=== PATIENT | male | born 1975 | race African-American/Black ===

== ENCOUNTER 2023-03-29 23:02 | Emergency (ER) | payer MEDICAID, OTHER ==
[~2023-03-29] VITALS: Ht 182.9 cm; Wt 95.3 kg
[2023-03-29] MEDS ORDERED: LIDOCAINE 2%-EPI 1:100,000 20 ML VIAL TP ONE (23:15)
[2023-03-29] MEDS ORDERED: OXYCODONE/APAP 5-325 MG TABLET PO ONE (23:45)
[2023-03-29] MEDS ORDERED: LIDOCAINE 2%-EPI 1:100,000 20 ML VIAL ONE (23:54)
[2023-03-29] MEDS ORDERED: OXYCODONE/APAP 5-325 MG TABLET ONE (23:54)
[2023-03-30] MEDS ORDERED: SULF1TAB48 PO (00:31)
[2023-03-30] MEDS ORDERED: ACET1TAB23 PO ×2 (00:31→00:34)
[2023-03-30 00:58] VITALS: BP 140/65; TEMP 98.5; O2SAT 98
== END 2023-03-30 01:00 | disposition home or self-care (01) ==
LOC: ER 23:12
DX: L02.411 Cutaneous abscess of right axilla (principal); F17.210 Nicotine dependence, cigarettes, uncomplicated; Z79.899 Other long term (current) drug therapy
CPT/HCPCS: A4663